=== PATIENT | male | born 2000 | race Caucasian/White ===

== ENCOUNTER 2021-01-08 17:03 | Emergency (ER) | payer SELFPAY ==
[~2021-01-08] VITALS: Ht 185.4 cm; Wt 105.0 kg
[2021-01-08] MEDS ORDERED: TORADOL PO (18:36)
[2021-01-08 18:46] VITALS: BP 131/71
== END 2021-01-08 18:51 | disposition home or self-care (01) | DRG 563 ==
LOC: ED 17:03
DX: S63.501A Unspecified sprain of right wrist, initial encounter (principal); I10 Essential (primary) hypertension; F17.200 Nicotine dependence, unspecified, uncomplicated; W01.0XXA Fall on same level from slipping, tripping and stumbling without subsequent striking against object, initial encounter; Y92.008 Other place in unspecified non-institutional (private) residence as the place of occurrence of the external cause

== ENCOUNTER 2021-01-11 16:01 | Emergency (ER) | payer SELFPAY ==
[~2021-01-11] VITALS: Ht 185.4 cm; Wt 130.0 kg
[~2021-01-11 16:01] MED LIST: TORADOL PO
[2021-01-11] MEDS ORDERED: LORTAB 5/3255 MG PO (16:53)
[2021-01-11 17:10] VITALS: BP 112/72
== END 2021-01-11 17:10 | disposition home or self-care (01) | DRG 563 ==
LOC: ED 16:01
DX: S63.501A Unspecified sprain of right wrist, initial encounter (principal); I10 Essential (primary) hypertension; F17.210 Nicotine dependence, cigarettes, uncomplicated; Z88.5 Allergy status to narcotic agent; X58.XXXA Exposure to other specified factors, initial encounter

== ENCOUNTER 2021-01-30 17:27 | Emergency (ER) | payer SELFPAY ==
[~2021-01-30] VITALS: Ht 185.4 cm; Wt 127.0 kg
[~2021-01-30 17:27] MED LIST changes: +LORTAB 5/3255 MG PO
[2021-01-30] MEDS ORDERED: BACTRIM DS1 TAB PO (18:44)
[2021-01-30 18:56] VITALS: BP 128/79
== END 2021-01-30 18:56 | disposition home or self-care (01) | DRG 603 ==
LOC: ED 17:27
PROC: 0H98XZZ Drainage of Buttock Skin, External Approach (ICD-10-PCS; principal; 2021-01-30)
DX: L02.31 Cutaneous abscess of buttock (principal); I10 Essential (primary) hypertension; F17.210 Nicotine dependence, cigarettes, uncomplicated

== ENCOUNTER 2022-04-09 13:37 | Emergency (ER) | payer SELFPAY ==
[~2022-04-09] VITALS: Ht 185.4 cm; Wt 111.4 kg
[~2022-04-09 13:37] MED LIST changes: +BACTRIM DS1 TAB PO
[2022-04-09] MEDS ORDERED: LORTAB 5/3255 MG PO (16:35)
[2022-04-09] MEDS ORDERED: MEDDOSEPAK PO (16:35)
[2022-04-09 16:39] VITALS: BP 154/82
== END 2022-04-09 16:47 | disposition home or self-care (01) | DRG 563 ==
LOC: ED 13:37
DX: S63.501A Unspecified sprain of right wrist, initial encounter (principal); I10 Essential (primary) hypertension; F17.210 Nicotine dependence, cigarettes, uncomplicated; W22.09XA Striking against other stationary object, initial encounter; X50.3XXA Overexertion from repetitive movements, initial encounter; Y93.H2 Activity, gardening and landscaping; Y92.89 Other specified places as the place of occurrence of the external cause

== ENCOUNTER 2022-05-24 10:09 | Emergency (ER) | payer SELFPAY ==
[2022-05-24] VITALS (7 sets, daily range): BP systolic 134–167; BP diastolic 72–95
[~2022-05-24] VITALS: Ht 185.4 cm; Wt 90.0 kg
[~2022-05-24 10:09] MED LIST changes: +MEDDOSEPAK PO
[2022-05-24] MEDS ORDERED: FLEXERIL5 M1 PO (12:07)
== END 2022-05-24 12:33 | disposition home or self-care (01) | DRG 552 ==
LOC: ED 10:09
DX: M54.6 Pain in thoracic spine (principal); M54.50 Low back pain, unspecified; S40.812A Abrasion of left upper arm, initial encounter; I10 Essential (primary) hypertension; F17.200 Nicotine dependence, unspecified, uncomplicated; W14.XXXA Fall from tree, initial encounter; Y93.89 Activity, other specified; Y92.007 Garden or yard of unspecified non-institutional (private) residence as the place of occurrence of the external cause